=== PATIENT | male | born 2000 | race Caucasian/White ===

== ENCOUNTER 2023-11-22 12:57 | Emergency (ER) | payer OTHER, SELFPAY ==
[2023-11-22 13:08] VITALS: BP 136/66; PULSE 89; RESP 16; TEMP 36.5; O2SAT 99
[2023-11-22 13:12] VITALS: BP 136/66; PULSE 89; RESP 16; TEMP 36.5; O2SAT 99
--- NOTE | 2023-11-22 13:22 | ED.WOUNDLAC ---
HPI - Wound/Laceration General Chief Complaint: Wound/Laceration Stated Complaint: Finger Injury Time Seen by Provider: 11/22/23 13:22 Source: patient Mode of arrival: ambulatory Limitations: no limitations History of Present Illness HPI narrative: 23-year-old male presented for complaint of puncture wound to the left middle finger sustained just prior to arrival. He states he was stopped by a piece of metal tool. He applied pressure to the site. Patient is unsure of his last tetanus. Related Data Allergies Allergy/AdvReac Type Severity Reaction Status Date / Time No Known Allergies Allergy Verified 11/22/23 13:11 Review of Systems Review of Systems: CONSTITUTIONAL: Denies body aches, fever, chills CARDIOVASCULAR: Denies chest pain, palpitations, or edema. RESPIRATORY: Denies cough or dyspnea. SKIN: Denies rash, itching reports wound left finger MUSCULOSKELETAL: Denies back pain, joint pain, or myalgia. NEUROLOGIC: Denies headache, numbness, tingling, or weakness. All systems reviewed & are unremarkable except as noted in HPI and below PMFSH Comments At time of signature, I have reviewed and agree with nursing past medical, surgical, social and family history unless otherwise noted. Please see nursing chart for further information. There is no relevant family history pertinent to the presenting complaint Exam Narrative: GENERAL: Well-appearing CHEST: Speaks in full sentences. No respiratory distress. HEART: Regular rate and rhythm. Normal and equal peripheral pulses. EXTREMITIES: Right 3rd digit has normal strength and sensation, normal range of motion. wound was cleansed. approx 2mm puncture wound to left distal phalanx at distal end of nail without involvement. No bleeding. Wound edges approximated. pulse palpable and equal bilaterally, skin warm, dry, pink. Capillary refill less than 3 seconds. SKIN: Warm, dry NEURO: Alert and oriented x3. PSYCH: Normal mood and affect Course Course Emergency Course: Patient is aware of diagnosis, understands and agrees to treatment plan. Anticipatory guidance given. Patient agrees to follow-up as directed and is aware of reasons to seek care at the emergency department. Portions of this record may have been created with voice recognition software Level of Care: Express Care Visit Vital Signs Vital signs: Vital Signs Temperature 97.7 F 11/22/23 13:08 Pulse Rate 89 11/22/23 13:08 Respiratory Rate 16 11/22/23 13:08 Blood Pressure 136/66 11/22/23 13:08 Pulse Oximetry 99 11/22/23 13:08 Oxygen Delivery Room Air 11/22/23 13:08 Temperature 97.7 F 11/22/23 13:12 Pulse Rate 89 11/22/23 13:12 Respiratory Rate 16 11/22/23 13:12 Blood Pressure 136/66 11/22/23 13:12 Pulse Oximetry 99 11/22/23 13:12 Oxygen Delivery Room Air 11/22/23 13:12 Reviewed Procedures Laceration left 3rd digit: Date: 11/22/23 ====== Skin Level ====== ====== Subcutaneous Layer ====== ====== Muscle Layer ====== ====== Tendon Layer ====== Dressing: wound was cleansed. approx 2mm puncture to left distal phalanx at distal end of nail without involvement. Bleeding stopped. BEKAH and bandaid applied. MDM - Wound/Laceration MDM Narrative Medical decision making narrative: Discussed physical exam findings; wound was cleansed. approx 2mm puncture to left distal phalanx at distal end of nail without involvement. No bleeding. tetanus updated. Advised supportive measures and signs/symptoms to go to the ER. Pt is appropriate for outpt treatment and f/u. Differential Diagnosis Differential diagnosis: Likely laceration, abrasion and avulsion of skin Discharge Plan Discharge Clinical Impression: Laceration Patient Disposition: Home, Self-Care Condition: Stable Instructions: Antibiotic Form, Puncture Wound (ED) Additional Instructions: Keep the area clean and dry - cleanse with warm water and
[2023-11-22] MEDS: TETANUS,DIPHTHERIA,AC PERTUSSIS ADULT (0.5 ML) BOOSTRIX IM (13:41)
== END 2023-11-22 13:44 | disposition home or self-care (01) ==
PROVIDERS: Emergency Provider Nurse Practitioner Family
DX: S61.213A Laceration without foreign body of left middle finger without damage to nail, initial encounter (principal); X58.XXXA Exposure to other specified factors, initial encounter; Z23 Encounter for immunization
CPT/HCPCS: 90471; 90715; 99212; G0463